=== PATIENT | female | born 1990 | race Caucasian/White ===

== ENCOUNTER 2019-07-07 14:37 | Inpatient (IN) ==
[2019-07-07] MEDS ORDERED: Haloperidol Lactate 5 MG/ML VIAL IM PRN (16:18)
[2019-07-07] MEDS ORDERED: *HR* LORazepam 2 MG/ML VIAL IM PRN (16:18)
[2019-07-07] MEDS ORDERED: *HR* LORazepam 1 MG TABLET PO PRN (16:18)
[2019-07-07] MEDS ORDERED: MOM Conc 10 ML UD.LIQ PO PRN (16:18)
[2019-07-07] MEDS ORDERED: Mag Hydrox/Al Hydrox/Simeth 30 ML UDC PO PRN (16:18)
[2019-07-07] MEDS: Nicotine 21 MG PATCH.TD24 TD SCH (18:24)
[2019-07-08] MEDS: Nicotine 21 MG PATCH.TD24 TD SCH (09:39)
[2019-07-08] MEDS: hydrOXYzine pamoate 25 MG CAPSULE PO PRN ×2 (09:39→20:41)
[2019-07-08] MEDS: Lurasidone 20 MG TABLET PO SCH (13:42)
[2019-07-08 14:26] LABS: Basophils % 0.6 %; Eosinophils # 0.1 K/mcL (0.0-0.6); Eosinophils % 1.8 %; Hematocrit 38.5 % (35.3-44.9); Hemoglobin 12.9 g/dL (11.5-15.4); Immature Granulocytes % 0.3 % (0-4); Lymphocytes # 2.2 K/mcL (0.6-4.6); Lymphocytes % 34.7 %; Mean Corpuscular HGB Conc 33.5 g/dL (31.6-35.5); Mean Corpuscular Hemoglobin 31.9 pg (28.0-33.3); Mean Corpuscular Volume 95.1 fL (83.0-100.0); Mean Platelet Volume 9.6 fL (9.4-12.4); Monocytes # 0.4 K/mcL (0.0-1.3); Monocytes % 6.9 %; Neutrophils # 3.5 K/mcL (1.6-8.9); Platelet Count 245 K/mcL (140-400); Red Blood Count 4.05 M/mcL (3.82-4.97); Red Cell Distribution Width 12.2 % (11.5-14.5); Segmented Neutrophils % 55.7 %; White Blood Count 6.2 K/mcL (4.3-11.1)
[2019-07-08] MEDS: traZODone 50 MG TABLET PO PRN (20:41)
[2019-07-09] MEDS: Lurasidone 20 MG TABLET PO SCH (08:48)
[2019-07-09] MEDS: Nicotine 21 MG PATCH.TD24 TD SCH (08:48)
[2019-07-09] MEDS: hydrOXYzine pamoate 25 MG CAPSULE PO PRN (20:21)
[2019-07-09] MEDS: traZODone 50 MG TABLET PO PRN (20:21)
[2019-07-09 21:32] LABS: Bilirubin,Urine Negative (Negative); Blood,Urine Negative (Negative); Clarity,Urine Clear (Clear); Color,Urine Yellow (Yellow); Glucose,Urine (UA) Normal (Normal); Ketones,Urine Negative (Negative); Leukocyte Esterase,Urine Negative (Negative); Nitrite,Urine Negative (Negative); PH,Urine 6.5 pH Units (5.0-8.0); Protein,Urine Negative (Neg-Trace); Specific Gravity,Urine 1.012 (1.010-1.025); Urobilinogen,Urine Normal (Normal)
[2019-07-10] MEDS: Nicotine 21 MG PATCH.TD24 TD SCH (08:46)
[2019-07-10] MEDS: Lurasidone 20 MG TABLET PO SCH (08:46)
[2019-07-10 09:25] VITALS: BP 102/72
== END 2019-07-10 12:18 | disposition home or self-care (01) | DRG 753 ==
LOC: EMEROOARM 14:37 → 1ANU 15:59
PROVIDERS: ADMIT Psychiatry & Neurology Psychiatry; ATTEND Psychiatry & Neurology Psychiatry